=== PATIENT | female | born 1935 | race Caucasian/White ===

== ENCOUNTER → 2017-07-19 | Day surgery (SDC) | payer MEDICARE ==
[~2017-07-19] VITALS: Ht 165.1 cm; Wt 52.7 kg
[~2017-07-19] MED LIST: 0.9% Sodium Chloride 1,000 ML IV PRN; 0.9% Sodium Chloride 1,000 ML IV SCH; AMLO-39 PO; AMLO5TAB2 PO; ASPI-628 PO; ASPI-973 PO; ATOR10TA66 PO; ATRV10T PO; Bupivacaine-MPF 0.5% 30 mL Inj ONE; CALC-881 PO; CARV3.12 PO; HYDROcodone-APAP 5-325 mg Tablet PO PRN; Heparin 10,000 Unit/1,000 mL NS Premix IV ONE; IMI100 PO; LACT1CAP67 PO; LOSA100T29 PO; MAGN200T PO; Ondansetron 2 mg/mL 2 mL Inj IVPUSH PRN; VALS160T23 PO; Vancomycin 1,000mg/200 mL NS IV ONE; Vancomycin Inj 1,000 MG in IV Premix 1 EACH IV ONE; fentaNYL-PF 50 mCg/mL 2 mL Inj ONE
[2017-07-19 10:05] VITALS: BP 184/71; PULSE 84; RESP 18; O2SAT 97
[2017-07-19 10:15] LABS: BASOPHILS % (AUTO) 0.5 % (0-3); EOSINOPHILS % (AUTO) 2.6 % (0-5); MONOCYTES % (AUTO) 12.1 % (4-12); Mean Corpuscular Volume 90.6 fL (81-100); NEUTROPHILS % (AUTO) 59.3 % (40-74); Platelet Count 271 bil/L (150-400)
[2017-07-19 10:26] LABS: INR 0.97 ratio
[2017-07-19 12:15] VITALS: BP 184/72; PULSE 70; RESP 18; O2SAT 94; O2SAT 97
[2017-07-19 12:30] VITALS: BP 173/75; PULSE 70; RESP 18; O2SAT 94; O2SAT 97
[2017-07-19 12:45] VITALS: BP 170/62; PULSE 70; RESP 18; O2SAT 94; O2SAT 97
--- NOTE | 2017-07-19 15:25 | PROCED ---
[address] [address] PROCEDURE NOTE PATIENT: ALICIA SAWANT : 1935 MR#: [id number] ADMIT: 07/19/2017 JOB ID: [id number] DATE OF SERVICE: 07/19/2017 PREOPERATIVE DIAGNOSIS(ES): Syncope. POSTOPERATIVE DIAGNOSIS(ES): Syncope. PROCEDURE PERFORMED: Implantable loop recorder implantation. SURGEON: Pourer: Oalyinka Tai MD GEOSCIENTIST: Vera Rueda IMPLANTED DEVICE: [email or web address] Reveal LINQ pulse generator, model LMQ11, serial number [id number]. ANESTHESIA: Bolus dosing of Versed and fentanyl with appropriate level of sedation. INDICATION: This patient is a pleasant 82-year-old woman with recurrent syncope and no clear etiology. Noninvasive monitoring has been unrevealing. After discussion of risks benefits of loop recorder implantation, she opted to proceed. PROCEDURAL DESCRIPTION: Following informed signed consent, the patient was taken to procedure room in fasting sedated state where she was prepped in usual sterile fashion. The left parasternal region was infiltrated with 1% lidocaine and then using the provided [employer] scalpel, a small incision was made. The loop recorder was then implanted subcutaneously using the insertion device, manual pressure was held and a Steri-Strip was used to approximate the skin. The patient tolerated the procedure well. COMPLICATIONS: None. BLOOD LOSS: Negligible. IMPRESSION: Successful loop recorder implantation. DEVICE SETTINGS: Tachycardia set 146 beats per minute for 16 beats. Bradycardia at 30 beats per minute for four beats. Pauses on for 3 seconds. detection is on. PLAN: 1. Recovery discharge from [facility]. 2. Doxycycline 100 mg p.o. daily x7 days. 3. Wound check in one week. ATTENDING STATEMENT: Olayinka Tai MD, Electrophysiology attending was present for and supervised/performed all aspects of this procedure.
== END | disposition home or self-care (01) ==
LOC: SPI 00:15
PROVIDERS: ATTEND Internal Medicine Cardiovascular Disease
DX: R55 Syncope and collapse (principal); I48.0 Paroxysmal atrial fibrillation; I10 Essential (primary) hypertension; Z85.3 Personal history of malignant neoplasm of breast; Z79.82 Long term (current) use of aspirin; Z79.01 Long term (current) use of anticoagulants
CPT/HCPCS: 33282; 36415; 80048; 85025; 85610; 99152; C1764; J1644; J2250; J3010; J3370; J7030